=== PATIENT | male | born 1980 | race African-American/Black ===

== ENCOUNTER 2017-09-05 12:53 | Observation (INO) | payer SELFPAY ==
--- NOTE | 2017-09-05 14:54 | ER Document Report ---
ED General - General Chief Complaint: Abscess Stated Complaint: HEAD PAIN Time Seen by Provider: 09/05/17 14:43 TRAVEL OUTSIDE OF THE [place] IN LAST 30 DAYS: No - HPI Notes: Patient is a 37-year-old male who presents the ED complaining of his entire scalp being infected and draining over the course of 6 months. Patient denies any history of MRSA, and was in retirement during that time. He denies any drug allergies or significant past medical history. Patient has not been evaluated for these in the past. Patient states that the area is painful and drains randomly. He has not noticed any red streaks. Denies any headache, fever, head injury, neck pain, URI, sore throat, chest pain, palpitations, syncope, cough, shortness of breath, wheeze, dyspnea, abdominal pain, nausea/vomiting/ diarrhea, urinary retention, dysuria, hematuria. Last PO meal was around 1300. - Related Data Allergies/Adverse Reactions: No Known Allergies Allergy (Unverified 09/05/17 15:26) Past Medical History - Social History Smoking Status: Current Some Day Smoker Chew tobacco use (# tins/day): No Frequency of alcohol use: None Drug Abuse: None Family History: Reviewed & Not Pertinent Patient has suicidal ideation: No Patient has homicidal ideation: No Renal/ Medical History: Denies: Hx Peritoneal Dialysis Review of Systems - Review of Systems Notes: REVIEW OF SYSTEMS: CONSTITUTIONAL : Denies fever, chills, or sweats. Denies recent illness. EENT: Denies eye, ear, throat, or mouth pain or symptoms. Denies nasal or sinus congestion or discharge. Denies throat, tongue, or mouth swelling or difficulty swallowing. CARDIOVASCULAR: Denies chest pain. Denies palpitations or racing or irregular heart beat. Denies ankle edema. RESPIRATORY: Denies cough, cold, or chest congestion. Denies shortness of breath, difficulty breathing, or wheezing. GASTROINTESTINAL: Denies abdominal pain or distention. Denies nausea, vomiting , or diarrhea. Denies blood in vomitus, stools, or per rectum. Denies black, tarry stools. Denies constipation. GENITOURINARY: Denies difficulty urinating, painful urination, burning, frequency, blood in urine, or discharge. MUSCULOSKELETAL: Denies back or neck pain or stiffness. Denies joint pain or swelling. SKIN: see hpi HEMATOLOGIC : Denies easy bruising or bleeding. LYMPHATIC: Denies swollen, enlarged glands. NEUROLOGICAL: Denies confusion or altered mental status. Denies passing out or loss of consciousness. Denies dizziness or lightheadedness. Denies headache. Denies weakness or paralysis or loss of use of either side. Denies problems with gait or speech. Denies sensory loss, numbness, or tingling. ALL OTHER SYSTEMS REVIEWED AND NEGATIVE. Dictation was performed using [employer] voice recognition software Physical Exam - Vital signs Vitals: Temp Pulse Resp BP Pulse Ox 97.7 F 89 18 117/81 97 09/05/17 14:03 09/05/17 14:03 09/05/17 14:03 09/05/17 14:03 09/05/17 14:03 Notes: PHYSICAL EXAMINATION: GENERAL: Well-appearing, well-nourished and in no acute distress. HEAD: entire scalp is an abscess with noted tracts leading to other abscesses. Scant purulent discharge noted w/o applied pressure needed. No streaks noted. + tenderness. EYES: Pupils equal round and reactive to light, extraocular movements intact, sclera anicteric, conjunctiva are normal. ENT: EAC clear b/l. TM's intact b/l without erythema, fluid, or perforation. Nares patent and without discharge. oropharynx clear without exudates. No tonsilar hypertrophy or erythema. Moist mucous membranes. NECK: Normal range of motion, supple without lymphadenopathy. No rigidity. LUNGS: Breath sounds clear to auscultation bilaterally and equal. No wheezes rales or rhonchi. HEART: Regular rate and rhythm without murmurs, rubs, gallops. Extremities: No cyanosis, clubbing, or edema b/l. Peripheral pulses 2+. Capillary refill less than 3 seconds. NEUROLOGICAL: Cranial nerves grossly intact. Normal speech, normal gait. Normal sensory, motor exams PSYCH: Normal mood, normal affect. SKIN: see head exam. Course - Re-evaluation Re-evalutation: 09/05/17 14:[address] Everett due to the extent of the abscess and tract formation underneath the scalp leading to other abscesses. Dr. Everett will be in to evaluate the patient. CBC, CMP, BC's, wound culture, Lactic, and saline lock ordered. 09/05/17 17:[address] Everett again. He said he would be right over. 09/05/17 17:25 Dr. Everett manually drained some of the abscess, but recommends I&D here in the room. I will start I&D and Dr. Everett will recheck after he completes another task in the OR. 09/05/17 18:38 5 areas of I&D with packing was performed by myself. Pt could not tolerate anymore, but required at least another 4-5. Dr. Everett was called for recheck. He will take him to the OR tonight. Pt in agreement with plan Clindamycin IV started. - Vital Signs Vital signs: Temp Pulse Resp BP Pulse Ox 97.7 F 89 18 117/81 97 09/05/17 14:03 09/05/17 14:03 09/05/17 14:03 09/05/17 14:03 09/05/17 14:03 - Laboratory Result Diagrams: 09/05/17 15:13 09/05/17 15:13 Laboratory results interpreted by me: 09/05/17 09/05/17 15:13 15:13 WBC 11.3 H RDW 14.9 H AST 15 L Total Protein 8.4 H Procedures - Incision and Drainage Head Time completed: 18:30 Type: Simple Anesthetic type: 1% Lidocaine mL's of anesthetic: 10 Blade size: 11 I&D procedure: Shurclens applied, Iodoform packing placed Incision Method: Incision made by scalpel Amount/type of drainage: large purulent Notes: 09/05/17 18:40 I&D with packing x5 locations on the scalp Incision and drainage procedure, risks, benefits reviewed with the patient. Verbal and written consent obtained. Sterile technique utilized. The area was extensively cleansed utilizing chlorhexadine and saline. A 21-gauge needle was utilized to anesthetize the area using 3 mL's of 1% lidocaine without epinephrine. in each of the 5 areas Once adequate anesthesia was provided, a #11 scalpel was utilized to make a 2cm elliptical incision at the site of the abscess. Moderate amounts of purulent material was expressed. Wound culture obtained. Hemostats were then utilized to break up any remaining muscular pockets within the abscess. The wound was then packed using 1/4" iodoform. Wound dressing placed Minimal blood loss (approximately 3-5 cc's). Patient tolerated procedure well. No complications. Discharge - Discharge Clinical Impression: Abscess of scalp Condition: Stable Disposition: SAME DAY SURGERY Admitting Provider: Surgicalist - Dr. Everett Unit Admitted: Surgical Floor
[2017-09-05 15:35] LABS: ABSOLUTE BASOPHILS # (AUTO) 0.1 10^3/uL (0.0-0.2); ABSOLUTE EOSINOPHILS # (AUTO) 0.3 10^3/uL (0.0-0.6); ABSOLUTE LYMPHOCYTES (AUTO) 2.2 10^3/uL (0.5-4.7); ABSOLUTE MONOCYTES (AUTO) 0.8 10^3/uL (0.1-1.4); ABSOLUTE NEUT (AUTO) 7.8 10^3/uL (1.7-8.2); BASOPHILS % (AUTO) 0.9 % (0-2); EOSINOPHILS % (AUTO) 2.3 % (0-6); HEMATOCRIT 44.2 % (37.9-51.0); HEMOGLOBIN 14.8 g/dL (13.5-17.0); HGB HCT DIFFERENCE 0.2; LYMPHOCYTES % (AUTO) 19.8 % (13-45); MEAN CORPUSCULAR HEMOGLOBIN 27.7 pg (27.0-33.4); MEAN CORPUSCULAR HGB CONC 33.5 g/dL (32.0-36.0); MEAN CORPUSCULAR VOLUME 83 fl (80-97); MONOCYTES % (AUTO) 7.5 % (3-13); RED BLOOD COUNT 5.35 10^6/uL (4.35-5.55); RED CELL DISTRIBUTION WIDTH 14.9 % (11.5-14.0); SEGMENTED NEUTROPHILS % (AUTO) 69.5 % (42-78); WHITE BLOOD COUNT 11.3 10^3/uL (4.0-10.5)
[2017-09-05 15:55] LABS: ALANINE AMINOTRANSFERASE 28 U/L (21-72); ALBUMIN 4.5 g/dL (3.5-5.0); ALKALINE PHOSPHATASE 76 U/L (38-126); ANION GAP 14 (5-19); ASPARTATE AMINO TRANSFERASE 15 U/L (17-59); BILIRUBIN,DIRECT 0.4 mg/dL (0.0-0.4); BILIRUBIN,TOTAL 0.6 mg/dL (0.2-1.3); BLOOD UREA NITROGEN 10 mg/dL (7-20); CALCIUM 9.9 mg/dL (8.4-10.2); CARBON DIOXIDE 25 mmol/L (22-30); CHLORIDE 104 mmol/L (98-107); GLUCOSE 91 mg/dL (75-110); POTASSIUM 4.3 mmol/L (3.6-5.0); SODIUM 143.4 mmol/L (137-145); TOTAL PROTEIN 8.4 g/dL (6.3-8.2)
[2017-09-05] MEDS ORDERED: LIDOCAINE 1% INJ-PF (10 MG/ML) 30 ML SDV INJ ONE (17:24)
[2017-09-05] MEDS ORDERED: CLINDAMYCIN 600 MG/D5W RTU 600 MG/50 ML RTUPB IV ONE (18:38)
--- NOTE | 2017-09-05 19:08 | HISTORY AND PHYSICAL E ---
History and Physical NAME: SHA SILVERMAN : 1980 AGE: 37Y ADMITTED: 09/05/2017 ROOM: CHIEF COMPLAINT: Pains in the scalp and below the chin. HISTORY OF PRESENT ILLNESS: This is a 37-year-old male who has been having pains in the scalp off and on, and sometimes it will also drain spontaneously, for the past several months. The patient was noted to be in [facility] for the past 6 months and just came out. It was kind of neglected while in the [facility]. PAST SURGICAL HISTORY: No previous surgery in the past. PAST MEDICAL HISTORY: No other medical conditions. FAMILY HISTORY: Mother has lung cancer and father is alive and well. SOCIAL HISTORY: Smokes about 1/2 pack a day and drinks socially. No recreational drug use. ALLERGIES: None known. REVIEW OF SYSTEMS: As in HPI. Denies any diarrhea or constipation. No dysuria. No chest pains. No shortness of breath. No dysuria or visual or hearing problems. The rest of the systems are negative. PHYSICAL EXAMINATION: GENERAL: This is a 37-year-old -[place] male, alert and oriented, complaining of scalp pains. HEENT: The head has multiple areas of abscesses with elevations from scar. About 5 of those abscesses were drained in the ER, but the patient was unable to tolerate further. He had subcutaneous swelling along the right side of the scalp and on the occipital area which may be abscesses. He also has a fluctuant area below the chin roughly measuring about 5 x 2 cm that is tender. LUNGS: Clear. HEART: Regular sinus rhythm. ABDOMEN: Soft, nontender. EXTREMITIES: No edema. IMPRESSION: Multiple abscesses of the scalp and below the chin. PLANS: 1. The patient is to have IV antibiotics. 2. These abscesses of the scalp will be further drained in the ER under sedation and local anesthesia. DICTATING PHYSICIAN: KADEEM MEJIAS M.D. [id number] PHY#: [id number] ID: [id number] JOB#: [id number] ACCT: [id number] cc:KADEEM MEJIAS M.D. NO Jair FERREIRA
[2017-09-06] MEDS ORDERED: MORPHINE SULFATE 10 MG/ML INJ IV PRN ×3 (01:56→17:33)
[2017-09-06] MEDS ORDERED: CLINDAMYCIN 600 MG/D5W RTU 600 MG/50 ML RTUPB IV ONE (02:00)
[2017-09-06] MEDS ORDERED: INFLUENZA ADLT QUAD (36MOS+) 2017-18 VAC 0.5 ML SYR IM PRN (02:22)
[2017-09-06] MEDS: NORMAL SALINE 1000 ML 1,000 ML IV PRN (02:53)
[2017-09-06 06:38] LABS: ABSOLUTE BASOPHILS # (AUTO) 0.1 10^3/uL (0.0-0.2); ABSOLUTE EOSINOPHILS # (AUTO) 0.3 10^3/uL (0.0-0.6); ABSOLUTE LYMPHOCYTES (AUTO) 2.3 10^3/uL (0.5-4.7); ABSOLUTE MONOCYTES (AUTO) 1.1 10^3/uL (0.1-1.4); ABSOLUTE NEUT (AUTO) 6.6 10^3/uL (1.7-8.2); EOSINOPHILS % (AUTO) 2.9 % (0-6); HEMATOCRIT 39.1 % (37.9-51.0); HEMOGLOBIN 13.1 g/dL (13.5-17.0); HGB HCT DIFFERENCE 0.2; LYMPHOCYTES % (AUTO) 21.7 % (13-45); MEAN CORPUSCULAR HEMOGLOBIN 27.6 pg (27.0-33.4); MEAN CORPUSCULAR HGB CONC 33.6 g/dL (32.0-36.0); MEAN CORPUSCULAR VOLUME 82 fl (80-97); MONOCYTES % (AUTO) 10.5 % (3-13); RED BLOOD COUNT 4.76 10^6/uL (4.35-5.55); RED CELL DISTRIBUTION WIDTH 14.9 % (11.5-14.0); SEGMENTED NEUTROPHILS % (AUTO) 63.9 % (42-78); WHITE BLOOD COUNT 10.4 10^3/uL (4.0-10.5)
--- NOTE | 2017-09-06 11:53 | PDOC PROGRESS REPORT ---
Subjective Progress Note for:: 09/06/17 Subjective:: Painful lesions on the scalp. Also underneath the chin. Physical Exam Vital Signs: Temp Pulse Resp BP Pulse Ox 97.7 F 69 17 117/73 98 09/06/17 08:01 09/06/17 08:01 09/06/17 08:01 09/06/17 08:01 09/06/17 08:01 Intake & Output 09/05/17 09/06/17 09/07/17 06:59 06:59 06:59 Intake Total 240 Output Total 200 Balance 40 Weight 90.7 kg General appearance: PRESENT: no acute distress, cooperative Respiratory exam: PRESENT: clear to auscultation jose Cardiovascular exam: PRESENT: RRR Skin exam: PRESENT: other - Multiple serpiginous swelling all over his scalp with fluctuance and purulent drainage. Involves majority of his scalp. Patient with a similar appearing lesion underneath his chin with fluctuance and tenderness. Results Laboratory Results: 09/06/17 06:07 09/06/17 06:07 WBC 10.4 RBC 4.76 Hgb 13.1 L Hct 39.1 MCV 82 MCH 27.6 MCHC 33.6 RDW 14.9 H Plt Count 203 Seg Neutrophils % 63.9 Lymphocytes % 21.7 Monocytes % 10.5 Eosinophils % 2.9 Basophils % 1.0 Absolute Neutrophils 6.6 Absolute Lymphocytes 2.3 Absolute Monocytes 1.1 Absolute Eosinophils 0.3 Absolute Basophils 0.1 Assessment & Plan - Diagnosis (1) Abscess of scalp Is this a current diagnosis for this admission?: Yes Plan: We will plan incision and drainage of his extensive serpiginous abscesses on his scalp. Will also plan incision and drainage of the abscess underneath his chin as well. I have discussed with the patient the risk and benefits of the procedure including risk of bleeding, infection, scarring, prolonged wound healing and most certainly recurrence. The drainage procedure will help control the infection but the underlying skin disease needs to be treated by dermatology. Unfortunately we do not have the inpatient dermatology in the hospital. I will make a referral as an outpatient.
[2017-09-06] MEDS: CLINDAMYCIN 600 MG/D5W RTU 600 MG/50 ML RTUPB IV SCH ×3 (12:13→20:55)
[2017-09-06] MEDS ORDERED: LIDOCAINE 1%/EPINEPHRINE INJ 20 ML VIAL ONE (13:13)
[2017-09-06] MEDS ORDERED: BUPIVACAINE HCL 0.25 % INJ/PF (2.5 MG/1 ML) 30 ML VIAL ONE (13:44)
[2017-09-06] MEDS ORDERED: HYDROMORPHONE HCL INJ/PF 2 MG/ML AMPULE ONE (15:42)
[2017-09-06] MEDS ORDERED: ONDANSETRON HCL INJ/PF 4 MG/2 ML SDV ONE (15:43)
[2017-09-06] MEDS ORDERED: PROPOFOL INJ 200 MG/20 ML VIAL IV ONE (15:43)
[2017-09-06] MEDS ORDERED: MIDAZOLAM 2 MG/2 ML INJ ONE (15:43)
[2017-09-06] MEDS ORDERED: FENTANYL CITRATE INJ/PF 100 MCG/2 ML AMPUL ONE (15:43)
[2017-09-06] MEDS ORDERED: DIPHENHYDRAMINE HCL 50 MG/ML VIAL IV PRN (16:33)
[2017-09-06] MEDS ORDERED: MEPERIDINE HCL/PF INJ 25 MG/1 ML DISP.SYRIN IV PRN (16:33)
[2017-09-06] MEDS ORDERED: PROMETHAZINE HCL INJ 25 MG/1 ML VIAL IV PRN (16:33)
[2017-09-06] MEDS ORDERED: FENTANYL CITRATE INJ/PF 100 MCG/2 ML AMPUL IV PRN ×3 (16:33)
--- NOTE | 2017-09-06 17:31 | Operative Report ---
Operative Report DATE OF SURGERY: 09/06/17 PREOPERATIVE DIAGNOSIS: Multiple scalp abscesses. POSTOPERATIVE DIAGNOSIS: Multiple scalp abscesses. Submental abscess. OPERATION: Excisional debridement of multiple scalp abscesses (about 30) and submental abscess. SURGEON: JAY BARR ANESTHESIA: GA TISSUE REMOVED OR ALTERED: Pus sent for Gram stain and culture. Assess cavity wall from couple of the scalp abscesses sent for histology. COMPLICATIONS: None ESTIMATED BLOOD LOSS: 200 cc INTRAOPERATIVE FINDINGS: Approximately 30 serpiginous abscesses throughout the patient's scalp. Approximately 2 x 1 cm abscess at the submental region. Almost all of these lesions had pus and cottage cheeselike material. A few of them just cottage cheeselike material. PROCEDURE: Informed consent was obtained. Patient was brought to the operating room placed on the operating table in the supine position. After satisfactory induction of general anesthesia, patient scalp and his neck underneath his chin was prepped and draped in the usual sterile fashion. Underneath his chin at the submental region patient had a 2 x 1 cm abscess that was opened and the cavity was curetted yielding cottage cheeselike material along with pus. The pus was sent for Gram stain and culture. On his scalp, throughout almost the entire scalp, patient had multiple serpiginous abscess pockets, approximately 30 -40 of them. Each of these lesions was opened using electrocautery to minimize bleeding. I encountered cottage cheeselike material and pus in most of these lesions. A few of them had only cottage cheese like material. Every one of these lesions were opened and curetted. The lining of the particularly larger ones along with portion of the overlying skin was submitted to histology. Pus that was encountered was swabbed for Gram stain and culture. The scalp was then cleansed. Hemostasis appeared to be reasonable with only minimal oozing. At the end of the case. Dry gauze dressing was then applied to apply compression to the scalp. Patient tolerated procedure well with no apparent complications and was taken to the recovery area in stable condition.
[2017-09-07] MEDS: NORMAL SALINE 1000 ML 1,000 ML IV PRN (01:01)
[2017-09-07] MEDS: CLINDAMYCIN 600 MG/D5W RTU 600 MG/50 ML RTUPB IV SCH ×4 (03:54→20:39)
[2017-09-07 07:02] LABS: URINE BARBITURATES SCREEN NEGATIVE; URINE METHADONE SCREEN NEGATIVE; URINE PHENCYCLIDINE SCREEN NEGATIVE
[2017-09-07 07:29] LABS: URINE OPIATES LOW UNCONFIRMED POSITIVE
[2017-09-07] MEDS ORDERED: INFLUENZA ADLT QUAD (36MOS+) 2017-18 VAC 0.5 ML SYR IM PRN (13:00)
--- NOTE | 2017-09-07 17:36 | PDOC PROGRESS REPORT ---
Subjective Progress Note for:: 09/07/17 Subjective:: Pains along the skull and submental area where he had multiple incision and drainage done yesterday Physical Exam Vital Signs: Temp Pulse Resp BP Pulse Ox 98.3 F 80 18 107/57 L 100 09/07/17 15:52 09/07/17 15:52 09/07/17 15:52 09/07/17 15:52 09/07/17 15:52 Intake & Output 09/06/17 09/07/17 09/08/17 06:59 06:59 06:59 Intake Total 240 4634 1050 Output Total 200 100 Balance 40 4534 1050 Weight 90.7 kg Exam: Head bandages intact. We will leave this on until at least tomorrow then possibly start him on shampoo. We will try to refer him to outpatient field ring assembler Results Laboratory Results: 09/06/17 06:07 Assessment & Plan - Time Time Spent with patient: 15-24 minutes - Plan Summary Plan Summary: #1 continue with IV antibiotic therapy To open the dressings tomorrow and possibly start him on shampoo of the hair Await final cultures results to the and to discharge the patient on based on the cultures. We will try to refer him to a field ring assembler on an outpatient basis to find out the etiology of all these abscesses of the scalp and submental area
[2017-09-08] MEDS: CLINDAMYCIN 600 MG/D5W RTU 600 MG/50 ML RTUPB IV SCH ×3 (04:01→15:57)
[2017-09-08 16:18] VITALS: BP 112/66
--- NOTE | 2017-09-08 16:20 | PDOC DISCHARGE SUMMARY ---
Discharge Summary (SDC) - Discharge Final Diagnosis: Multiple scalp abscesses and submental abscess Date of Surgery: 09/06/17 Discharge Date: 09/08/17 Condition: Stable Treatment or Instructions: Continue daily shampooing of the hair. Follow-up the surgical clinic in [address] Villasenor Outpatient follow-up with a hvac sales representative Culture showed Proteus mirabilis sensitive to Cipro. Patient to take Cipro 500 mg p.o. twice a day for 2 weeks Prescriptions: Ciprofloxacin HCl [Cipro 500 mg Tablet] 500 mg PO BID 14 Days #30 tablet Referrals: [facility] [Provider Group] - 09/25/17 2:15 pm (S/P DEBRIDEMENT OF MULTIPLE SCALP ABSCESS 09/06) [facility] [Outside] - 10/03/17 8:45 am (Paperwork will be mailed out to you. Please complete before visit. Arrive 20 mins early. Office visit will be between $80- $180 due in full at time of visit.)
== END 2017-09-08 17:54 | disposition home or self-care (01) ==
LOC: ER 12:53 → UNDOADMOB 19:54 → EH 19:54 → 4N 09-06 01:25 → EH 09-06 01:25 → 4N 09-06 01:40 → EH 09-06 01:40
PROVIDERS: ATTEND Surgery
PROC: 0H90XZZ Drainage of Scalp Skin, External Approach (ICD-10-PCS; 2017-09-06)
PROC: 0JB10ZZ Excision of Face Subcutaneous Tissue and Fascia, Open Approach (ICD-10-PCS; 2017-09-06)
PROC: 0JB00ZZ Excision of Scalp Subcutaneous Tissue and Fascia, Open Approach (ICD-10-PCS; 2017-09-06)
PROC: 3E0234Z Introduction of Serum, Toxoid and Vaccine into Muscle, Percutaneous Approach (ICD-10-PCS; principal; 2017-09-08)
DX: L02.811 Cutaneous abscess of head [any part, except face] (principal); L02.01 Cutaneous abscess of face; B96.4 Proteus (mirabilis) (morganii) as the cause of diseases classified elsewhere; L98.499 Non-pressure chronic ulcer of skin of other sites with unspecified severity; F17.210 Nicotine dependence, cigarettes, uncomplicated; Z23 Encounter for immunization
CPT/HCPCS: 99285; 96365; 36415 ×2; 87040; 87070 ×2; 87205 ×2; 85025 ×2; 87075; 87077; 80053; 87186; 80307; 83605; 88305 ×2; 88312 ×2; 90686; 10061; 11042; A6266; J2250; J3010; J3490 ×3; J1170; J2405; J7030 ×2; J2704; 300

== ENCOUNTER 2018-05-24 10:19 | Emergency (ER) | payer SELFPAY ==
[2018-05-24 10:26] VITALS: BP 110/70
--- NOTE | 2018-05-24 10:37 | ER Document Report ---
HPI - HPI Patient complains to provider of: Right scalp abscess Onset: Other - 3 days Pain Level: 0 Context: 38-year-old male that was incarcerated for 8 years and had multiple facial and scalp abscesses with keloid scarring is now here with an abscess formation to the right parietal scalp for 3 days. No known allergies. No history of MRSA. Exacerbated by: Denies Relieved by: Denies Similar symptoms previously: Yes Recently seen / treated by doctor: No - ROS ROS below otherwise negative: Yes Systems Reviewed and Negative: Yes All other systems reviewed and negative Past Medical History - General Information source: Patient - Social History Smoking Status: Current Every Day Smoker Frequency of alcohol use: None Drug Abuse: None Occupation: Unemployed Lives with: Family Family History: Reviewed & Not Pertinent - Medical History Medical History: Negative Renal/ Medical History: Denies: Hx Peritoneal Dialysis Surgical Hx: Negative Vertical Provider Document - CONSTITUTIONAL Agree With Documented VS: Yes - INFECTION CONTROL TRAVEL OUTSIDE OF THE [place] IN LAST 30 DAYS: No - HEENT HEENT: Normocephalic Notes: 3 cm abscess to the right parietal scalp, flucuant, red, extensive keloids top of head and bilateral cheeks - NECK Neck: Supple - NEURO Level of Consciousness: Awake - DERM Integumentary: Abscess - See above Course - Vital Signs Vital signs: Temp Pulse Resp BP Pulse Ox 97.9 F 78 20 110/70 98 05/24/18 10:25 05/24/18 10:25 05/24/18 10:25 05/24/18 10:25 05/24/18 10:25 Procedures - Incision and Drainage Right Head Time completed: 11:52 Type: Simple Anesthetic type: 1% Lidocaine mL's of anesthetic: 4 Blade size: 11 I&D procedure: Betadine prep applied, Sterile dressing applied - corner of 4 x 4 packing, coban Incision Method: Incision made by scalpel Amount/type of drainage: large pus Discharge - Discharge Clinical Impression: Incision and drainage scalp abscess Condition: Good Disposition: HOME, SELF-CARE Instructions: Abscess ([facility]), Cephalexin ([facility]), Post Incision and Drainage, Trimethoprim-Sulfa ([facility]) Additional Instructions: Warm compress Leave the bandage on reCheck on Monday in the ER Return to the emergency room sooner if the symptoms worsen Prescriptions: Cephalexin Monohydrate [Keflex 500 mg Capsule] 500 mg PO QID #28 capsule Sulfamethoxazole/Trimethoprim [Sulfamethoxazole-Tmp Ds Tablet] 1 each PO BID # 14 tablet
[2018-05-24] MEDS ORDERED: SULFAMETHOXAZOLE/TRIMETHOPRIM 800-160 MG TABLET PO ONE (10:43)
[2018-05-24] MEDS ORDERED: ACETAMINOPHEN 325 MG TABLET PO ONE (10:44)
[2018-05-24] MEDS ORDERED: IBUPROFEN 800 MG TABLET PO ONE (10:44)
[2018-05-24] MEDS ORDERED: ONDANSETRON 4 MG TAB.RAPDIS PO ONE (10:44)
[2018-05-24] MEDS ORDERED: CEPHALEXIN 500 MG CAPSULE PO ONE (11:49)
== END 2018-05-24 12:00 | disposition home or self-care (01) ==
LOC: ER 10:19
DX: L02.811 Cutaneous abscess of head [any part, except face] (principal); F17.200 Nicotine dependence, unspecified, uncomplicated; L91.0 Hypertrophic scar
CPT/HCPCS: 99283; 10060; S0119

== ENCOUNTER 2018-05-26 13:06 | Emergency (ER) | payer SELFPAY ==
--- NOTE | 2018-05-26 13:38 | ER Document Report ---
HPI - HPI Patient complains to provider of: abscess recheck Onset: Other - 2 days ago Pain Level: Denies Context: 38 yo male with chronic scalp abascess and keloids had right temporal abscess i and d 2 days ago. No fever. Associated Symptoms: None Exacerbated by: Denies Relieved by: Denies - ROS ROS below otherwise negative: Yes Systems Reviewed and Negative: Yes All other systems reviewed and negative Past Medical History - General Information source: Patient - Social History Smoking Status: Current Every Day Smoker Frequency of alcohol use: None Drug Abuse: None Lives with: Family Family History: Reviewed & Not Pertinent Patient has suicidal ideation: No Patient has homicidal ideation: No - Medical History Medical History: Negative Renal/ Medical History: Denies: Hx Peritoneal Dialysis Surgical Hx: Negative Vertical Provider Document - CONSTITUTIONAL Agree With Documented VS: Yes Exam Limitations: No Limitations General Appearance: No Apparent Distress - INFECTION CONTROL TRAVEL OUTSIDE OF THE [place] IN LAST 30 DAYS: No - DERM Integumentary: Abscess - flat, no pus, although other chronic follicular drainage mixed with keloid scars Course - Vital Signs Vital signs: Temp Pulse Resp BP Pulse Ox 98.5 F 72 16 120/77 98 05/26/18 13:14 05/26/18 13:14 05/26/18 13:14 05/26/18 13:14 05/26/18 13:14 Discharge - Discharge Clinical Impression: Scalp abscess recheck, Chronic scalp pustules Condition: Good Disposition: HOME, SELF-CARE Instructions: Abscess ([facility]), Cephalexin ([facility]), Trimethoprim-Sulfa ([facility]) Additional Instructions: Warm compress Take the antibiotics Motrin Tylenol Lidocaine to numb the area See the dentist Return to the emergency room if worse Prescriptions: Cephalexin Monohydrate [Keflex 500 mg Capsule] 500 mg PO QID #28 capsule Sulfamethoxazole/Trimethoprim [Sulfamethoxazole-Tmp Ds Tablet] 1 each PO BID # 14 tablet Referrals: KRYSTEN HARRIS MD [ACTIVE STAFF] - Follow up as needed
[2018-05-26] MEDS ORDERED: LIDOCAINE 2% VISCOUS SOLN 20 ML UDCUP PO ONE (13:44)
[2018-05-26] MEDS ORDERED: IBUPROFEN 800 MG TABLET PO ONE (13:44)
[2018-05-26] MEDS ORDERED: ONDANSETRON 4 MG TAB.RAPDIS PO ONE (13:44)
[2018-05-26] MEDS ORDERED: PENICILLIN V POTASSIUM 500 MG TABLET PO ONE (13:44)
[2018-05-26] MEDS ORDERED: ACETAMINOPHEN 325 MG TABLET PO ONE (13:44)
[2018-05-26 14:15] VITALS: BP 65/46
== END 2018-05-26 14:15 | disposition home or self-care (01) ==
LOC: ER 13:06
DX: L02.811 Cutaneous abscess of head [any part, except face] (principal); L91.0 Hypertrophic scar; F17.200 Nicotine dependence, unspecified, uncomplicated
CPT/HCPCS: 99282

== ENCOUNTER 2018-10-20 06:44 | Emergency (ER) | payer SELFPAY ==
[2018-10-20] MEDS ORDERED: LIDOCAINE 1% INJ-PF (10 MG/ML) 30 ML SDV INJ ONE (08:07)
--- NOTE | 2018-10-20 08:14 | ER Document Report ---
HPI - HPI Time Seen by Provider: 10/20/18 07:43 Pain Level: 4 Notes: Patient is a 38-year-old male with a history of keloids and multiple abscesses to his scalp last year who presents to the ED complaining of another abscess formation to the left scalp from 1 of the scars. Patient states that the swelling started a few days ago. He has no history of MRSA. He is otherwise eating and drinking without any difficulties. He is urinating normally. Denies any drug allergies. No other concerns or complaints. Denies IV drug use. Denies any headache, fever, head injury, neck pain, URI, sore throat, chest pain, palpitations, syncope, cough, shortness of breath, wheeze, dyspnea, abdominal pain, nausea/vomiting/diarrhea, urinary retention, dysuria, hematuria. - ROS Systems Reviewed and Negative: Yes All other systems reviewed and negative - CONSTITUTIONAL Constitutional: DENIES: Fever, Chills Past Medical History - Social History Smoking Status: Never Smoker Frequency of alcohol use: None Drug Abuse: None Family History: Reviewed & Not Pertinent Patient has suicidal ideation: No Patient has homicidal ideation: No Renal/ Medical History: Denies: Hx Peritoneal Dialysis Vertical Provider Document - CONSTITUTIONAL Agree With Documented VS: Yes Notes: PHYSICAL EXAMINATION: GENERAL: Well-appearing, well-nourished and in no acute distress. HEAD: keloids entire scalp. + abscess and fluctuance noted to the left lateral scalp involving one of the keloids. No streaks. EYES: Pupils equal round and reactive to light, extraocular movements intact, sclera anicteric, conjunctiva are normal. ENT: Nares patent and without discharge. oropharynx clear without exudates. No tonsilar hypertrophy or erythema. Moist mucous membranes. NECK: Normal range of motion, supple without lymphadenopathy LUNGS: Breath sounds clear to auscultation bilaterally and equal. No wheezes rales or rhonchi. HEART: Regular rate and rhythm without murmurs, rubs, gallops. ABDOMEN: Soft, nontender, nondistended abdomen. No guarding, no rebound. No masses appreciated. Normal bowel sounds present. No CVA tenderness bilaterally. Musculoskeletal: FROM to passive/active. Strength 5+/5. Extremities: No cyanosis, clubbing, or edema b/l. Peripheral pulses 2+. Capillary refill less than 3 seconds. NEUROLOGICAL: Cranial nerves grossly intact. Normal speech, normal gait. Normal sensory, motor exams PSYCH: Normal mood, normal affect. SKIN: see above. US utilized to see fluid/fluctuance. - INFECTION CONTROL TRAVEL OUTSIDE OF THE [place] IN LAST 30 DAYS: No Course - Re-evaluation Re-evalutation: 10/20/18 09:54 Patient is an afebrile, well-hydrated, 38-year-old male who presents to the ED with an abscess to his left scalp. Vitals are acceptable without significant tachycardia, tachypnea, or hypoxia. PE is otherwise unremarkable. Incision and drainage was performed successfully without any complications and wound culture was obtained. Wound dressing was placed and wound instructions reviewed. Patient is nontoxic-appearing and is tolerating p.o. without difficulty. No further labs or imaging warranted at this time. I will send him home with a prescription for Keflex and Bactrim. Conservative measures otherwise. Recheck with your PCM/general surgery for recheck next week. Return to the ED with any worsening/concerning symptoms otherwise as reviewed. Patient is in agreement. - Vital Signs Vital signs: Temp Pulse Resp BP Pulse Ox 97.8 F 88 18 133/82 H 95 10/20/18 06:50 10/20/18 06:50 10/20/18 06:50 10/20/18 06:50 10/20/18 06:50 Procedures - Incision and Drainage Left Head Time completed: 09:45 - Patient tolerated procedure well without any complications Type: Simple Anesthetic type: 1% Lidocaine mL's of anesthetic: 6 Blade size: 11 I&D procedure: Iodoform packing placed, Sterile dressing applied, Other - chlorhexadine/saline Incision Method: Incision made by scalpel Amount/type of drainage: abundant purulent, bloody Discharge - Discharge Clinical Impression: Abscess of scalp Condition: Stable Disposition: HOME, SELF-CARE Instructions: Cephalexin ([facility]), Trimethoprim-Sulfa ([facility]), Post Incision and Drainage Additional Instructions: Do not shower or bathe for 24 hours. After 24 hours she may shower but no submersion of the wound under water. Keep the original dressing on the wound for 24 hours unless the drainage soaks through. Change the dressing daily thereafter and use a small amount of triple antibiotic ointment over the open wound. See your PCM in 2-3 days for recheck and continue direction for wound packing. Schedule a f/u with the general surgeon as well. Monitor for any signs of worsening pain or redness, streaks, and/or fever. Return to the ED if noticing any of the above symptoms or as needed. Take medications as directed. Prescriptions: Cephalexin Monohydrate [Keflex 500 mg Capsule] 500 mg PO TID #30 capsule Sulfamethoxazole/Trimethoprim [Bactrim Ds Tablet] 1 each PO BID #20 tablet Forms: Elevated Blood Pressure Referrals: [facility] [Primary Care Provider] - 10/23/18 MARIBEL SIN MD [ACTIVE STAFF] - Follow up as needed
[2018-10-20 10:08] VITALS: BP 128/81
== END 2018-10-20 10:08 | disposition home or self-care (01) ==
LOC: ER 06:44
DX: L02.811 Cutaneous abscess of head [any part, except face] (principal); L91.0 Hypertrophic scar
CPT/HCPCS: 99283; 87070; 87205; 87075; 87077; 10060; A6266; 87186

== ENCOUNTER 2018-11-23 01:52 | Emergency (ER) | payer SELFPAY ==
[2018-11-23 02:19] VITALS: BP 118/81
[2018-11-23] MEDS ORDERED: LIDOCAINE 1% INJ-PF (10 MG/ML) 30 ML SDV INJ ONE (02:27)
--- NOTE | 2018-11-23 02:28 | ER Document Report ---
ED Skin Rash/Insect Bite/Abscs - General Chief Complaint: Abscess Stated Complaint: ABCESS Time Seen by Provider: 11/23/18 02:22 Notes: Patient is a 38-year-old male that comes to the emergency department for chief complaint of an area above his left buttock where he has pain and swelling. He states this has developed over a week ago. He denies history of the same. He denies fever or chills, nausea vomiting, or any other complaints. He denies history of diabetes. TRAVEL OUTSIDE OF THE [place] IN LAST 30 DAYS: No - Related Data Allergies/Adverse Reactions: No Known Allergies Allergy (Verified 05/26/18 13:08) Past Medical History - General Information source: Patient - Social History Smoking Status: Never Smoker Drug Abuse: None Lives with: Family Family History: Reviewed & Not Pertinent - Medical History Medical History: Negative Renal/ Medical History: Denies: Hx Peritoneal Dialysis Surgical Hx: Negative - Immunizations Immunizations up to date: Yes Hx Diphtheria, Pertussis, Tetanus Vaccination: Yes Review of Systems - Review of Systems Constitutional: No symptoms reported EENT: No symptoms reported Cardiovascular: No symptoms reported Respiratory: No symptoms reported Gastrointestinal: No symptoms reported Genitourinary: No symptoms reported Male Genitourinary: No symptoms reported Musculoskeletal: No symptoms reported Skin: See HPI Hematologic/Lymphatic: No symptoms reported Neurological/Psychological: No symptoms reported Physical Exam - Vital signs Vitals: Temp Pulse Resp BP Pulse Ox 97.9 F 108 H 18 118/81 95 11/23/18 01:55 11/23/18 01:55 11/23/18 01:55 11/23/18 01:55 11/23/18 01:55 - Notes Notes: GENERAL: Alert, interacts well. No acute distress. HEAD: Normocephalic, atraumatic. EYES: Pupils equal, round, and reactive to light. Extraocular movements intact. ENT: Oral mucosa moist, tongue midline. Oropharynx unremarkable. Airway patent. Nares patent, no nasal septal hematoma, TM's intact. NECK: Full range of motion. Supple. Trachea midline. LUNGS: Clear to auscultation bilaterally, no wheezes, rales, or rhonchi. No respiratory distress. HEART: Regular rate and rhythm. No murmur ABDOMEN: Soft, non-tender. Non-distended. Bowel sounds present in all 4 quadrants. GENITOURINARY: Deferred EXTREMITIES: Moves all 4 extremities spontaneously. No edema, normal radial and dorsalis pedis pulses bilaterally. No cyanosis. BACK: no cervical, thoracic, lumbar midline tenderness. No saddle anesthesia, normal distal neurovascular exam. NEUROLOGICAL: Alert and oriented x3. Normal speech. [cranial nerves II through XII grossly intact]. PSYCH: Normal affect, normal mood. SKIN: Left superior buttock with an indurated area. There is minimal erythema and warmth, there is no noted spreading cellulitis, there is no fluctuance or head. Unremarkable skin exam otherwise. Course - Re-evaluation Re-evalutation: Patient has a small indurated area over the left pilonidal cyst area. There is no fluctuant component. There is minimal erythema. Discussed with patient, decision was made to attempt to drain, I was able to obtain a very small amount of purulent material using an 18-gauge needle but this was somewhat deep and there is no large fluctuant area. After the drainage was performed, absorbent dressing was placed, placed on antibiotics, discussed recommendations, discussed surgical clinic follow-up, discussed return precautions in detail with patient. Patient states understanding and agreement. - Vital Signs Vital signs: Temp Pulse Resp BP Pulse Ox 97.9 F 108 H 18 118/81 95 11/23/18 01:55 11/23/18 01:55 11/23/18 01:55 11/23/18 01:55 11/23/18 01:55 Procedures - Incision and Drainage Left upper gluteal cleft Type: Single Anesthetic type: 1% Lidocaine mL's of anesthetic: 7 I&D procedure: Shurclens applied, Sterile dressing applied Incision Method: Incision made with needle Discharge - Discharge Clinical Impression: Pilonidal cyst Condition: Stable Disposition: HOME, SELF-CARE Additional Instructions: Your symptoms are suggestive of a developing pilonidal cyst infection, a small amount of pus was drained from the area but no significant amount at this time. Recommendation is to apply warm compress to the area several times a day, keep absorbent dressing over the area, take the antibiotics as prescribed. This can draw it to a head and cause drainage. Symptoms should improve with time. Follow-up with primary care, consider follow-up with the general surgery clinic especially if this continues to occur. Return if you worsen including developing or spreading redness, fever, or any other concerning or worsening symptoms. Prescriptions: Cephalexin Monohydrate [Keflex 500 mg Capsule] 500 mg PO QID #28 capsule Sulfamethoxazole/Trimethoprim [Bactrim Ds Tablet] 1 each PO BID #14 tablet Referrals: [facility] [Provider Group] - Follow up in 3-5 days
[2018-11-23] MEDS ORDERED: HYDROCODONE/ACETAMINOPHEN 5-325 MG (6 TAB/ER DISP) PO PRN (03:12)
[2018-11-23] MEDS ORDERED: CEPHALEXIN 500 MG CAPSULE PO ONE (03:19)
[2018-11-23] MEDS ORDERED: SULFAMETHOXAZOLE/TRIMETHOPRIM 800-160 MG TABLET PO ONE (03:19)
== END 2018-11-23 03:37 | disposition home or self-care (01) ==
LOC: ER 01:52
DX: L05.91 Pilonidal cyst without abscess (principal)
CPT/HCPCS: 99283; 10080; J3490

== ENCOUNTER 2018-12-21 13:29 | Emergency (ER) | payer SELFPAY ==
[2018-12-21] MEDS ORDERED: LIDOCAINE 1% INJ-PF (10 MG/ML) 30 ML SDV INJ ONE ×2 (14:15→17:21)
--- NOTE | 2018-12-21 17:11 | ER Document Report ---
ED General - General Chief Complaint: Abscess Stated Complaint: WOUND CHECK Time Seen by Provider: 12/21/18 14:09 Primary Care Provider: TATE GUTIERREZ [NO LOCAL MD] - Follow up as needed KADEEM MEJIAS MD [WENCESLAO FRANCOIS] - Follow up as needed TRAVEL OUTSIDE OF THE [place] IN LAST 30 DAYS: No - HPI Notes: Patient is a 38-year-old male no significant past medical history presents to the emergency department complaining of an abscess to his left upper buttock that is been there for the last few weeks. Patient states that he was here about a month ago and was placed on antibiotics, but did not have an incision and drainage performed at that time as there is no fluctuance. Patient states that he has noticed increased pain and redness to the area without any purulent discharge or red streaking. He is eating and drinking without difficulty. He is urinating normally and having normal bowel movements. Denies drug allergies. Denies IV drug abuse. No other concerns or complaints. Denies any headache, fever, URI, sore throat, chest pain, palpitations, syncope, cough, shortness of breath, wheeze, dyspnea, abdominal pain, nausea/vomiting/diarrhea, urinary re tention, dysuria, hematuria. - Related Data Allergies/Adverse Reactions: No Known Allergies Allergy (Verified 12/21/18 13:31) Past Medical History - Social History Smoking Status: Unknown if Ever Smoked Family History: Reviewed & Not Pertinent Patient has suicidal ideation: No Patient has homicidal ideation: No Renal/ Medical History: Denies: Hx Peritoneal Dialysis - Immunizations Immunizations up to date: Yes Hx Diphtheria, Pertussis, Tetanus Vaccination: Yes Review of Systems - Review of Systems -: Yes All other systems reviewed and negative Physical Exam - Vital signs Vitals: Temp Pulse Resp BP Pulse Ox 97.6 F 69 16 119/71 98 12/21/18 13:36 12/21/18 13:36 12/21/18 13:36 12/21/18 13:36 12/21/18 13:36 - Notes Notes: PHYSICAL EXAMINATION: GENERAL: Well-appearing, well-nourished and in no acute distress. LUNGS: Breath sounds clear to auscultation bilaterally and equal. No wheezes rales or rhonchi. HEART: Regular rate and rhythm without murmurs, rubs, gallops. ABDOMEN: Soft, nontender, nondistended abdomen. No guarding, no rebound. No masses appreciated. Normal bowel sounds present. No CVA tenderness bilaterally. Musculoskeletal: FROM to passive/active. Strength 5+/5. Extremities: No cyanosis, clubbing, or edema b/l. Peripheral pulses 2+. Capillary refill less than 3 seconds. NEUROLOGICAL: Normal speech, normal gait. PSYCH: Normal mood, normal affect. SKIN: there is an indurated, erythemic, fluctuant abscess to the left upper buttock. + tenderness. Approx size is 6cm diameter. Course - Re-evaluation Re-evalutation: 12/21/18 17:50 Patient is an afebrile, well-hydrated, 38-year-old male who presents emergency department with an abscess to his left upper buttock. Vitals are acceptable without significant tachycardia, tachypnea, or hypoxia. PE is otherwise unremarkable. Patient is nontoxic-appearing and is tolerating p.o. without difficulty. Incision and drainage performed successfully without any complications and packing was placed. Wound culture was obtained. Patient tolerated procedure well. No further labs or imaging warranted at this time. Wound instructions reviewed. Low suspicion for any sepsis, meningitis, or other systemic emergent condition at this time. Patient to monitor symptoms and seek medical attention with acute changes. Recheck with your PCM in 2-3 days. Return to the ED with any other worsening/concerning symptoms otherwise as reviewed. Patient is in agreement. - Vital Signs Vital signs: Temp Pulse Resp BP Pulse Ox 97.6 F 69 16 119/71 98 12/21/18 13:36 12/21/18 13:36 12/21/18 13:36 12/21/18 13:36 12/21/18 13:36 Procedures - Incision and Drainage Left Buttock Time completed: 17:40 Type: Simple Anesthetic type: 1% Lidocaine mL's of anesthetic: 8 Blade size: 11 I&D procedure: Iodoform packing placed, Sterile dressing applied, Other - chlorhexadine/saline Incision Method: Incision made by scalpel Amount/type of drainage: moderate purulent Discharge - Discharge Clinical Impression: Abscess Condition: Stable Disposition: HOME, SELF-CARE Instructions: Abscess ([facility]), Cephalexin ([facility]), Post Incision and Drainage, Trimethoprim-Sulfa ([facility]) Additional Instructions: Do not shower or bathe for 24 hours. After 24 hours you may shower but no submersion of the wound under water. Keep the original dressing on the wound for 24 hours unless the drainage soaks through. Change the dressing daily thereafter and use a small amount of triple antibiotic ointment over the open wound. See your PCM in 2-3 days for recheck and continue direction for wound packing. Monitor for any signs of worsening pain or redness, streaks, and/or fever. Return to the ED if noticing any of the above symptoms or as needed. Take medications as directed. Prescriptions: Cephalexin Monohydrate [Keflex 500 mg Capsule] 500 mg PO TID #21 capsule Sulfamethoxazole/Trimethoprim [Bactrim Ds Tablet] 1 each PO BID #20 tablet [facility] [NO LOCAL MD] - Follow up as needed KADEEM MEJIAS MD [WENCESLAO FRANCOIS] - Follow up as needed
[2018-12-21 18:07] VITALS: BP 113/72
--- NOTE | 2018-12-21 18:15 | ER Document Report ---
Entered by MICHAEL AMBROSIO SCRIBE 12/21/18 [id number] Acting as scribe for:RUTHANN MORENO DO ED Medical Screen (RME) - General Chief Complaint: Abscess Stated Complaint: WOUND CHECK Time Seen by Provider: 12/21/18 14:09 Primary Care Provider: TATE GUTIERREZ [NO LOCAL MD] - Follow up as needed KADEEM MEJIAS MD [WENCESLAO FRANCOIS] - Follow up as needed Notes: 38-year-old male who presents to the emergency department today for an abscess recheck. Patient states when the area was incised there was "no pocket" of pus. Patient states he has not noticed any drainage from this area. Patient states there has been increasing swelling and pain for the last few weeks. Patient denies any fevers. He was given antibiotics previously and he finished taking them. States that he now feels worse than when he was previously in the emergency department. I have greeted and performed a rapid initial assessment of this patient. A comprehensive ED assessment and evaluation of the patient, analysis of test results, and completion of the medical decision making process will be conducted by additional ED providers. Review of systems: Constitutional: Denies fevers EENT: No symptoms reported Cardiovascular: No symptoms reported Respiratory: No symptoms reported Gastrointestinal: No symptoms reported Genitourinary: No symptoms reported Musculoskeletal: No symptoms reported Skin: Abscess to left buttock Hematologic/Lymphatic: No symptoms reported Neurological/Psychological: No symptoms reported Yes All other systems reviewed and negative PHYSICAL EXAM GENERAL: Alert, interacts well. No acute distress. HEAD: Normocephalic, atraumatic. EYES: Pupils equal, round, and reactive to light. Extraocular movements intact. ENT: Oral mucosa moist, tongue midline. NECK: Full range of motion. Supple. Trachea midline. LUNGS: No respiratory distress. EXTREMITIES: Moves all 4 extremities spontaneously. NEUROLOGICAL: Alert and oriented x3. Normal speech. PSYCH: Normal affect, normal mood. SKIN: Left mid buttock has an area of induration, swelling, erythema, and fluctuance measuring 8 cm in diameter. No active drainage. TRAVEL OUTSIDE OF THE [place] IN LAST 30 DAYS: No - Related Data Allergies/Adverse Reactions: No Known Allergies Allergy (Verified 12/21/18 13:31) Past Medical History Renal/ Medical History: Denies: Hx Peritoneal Dialysis - Immunizations Immunizations up to date: Yes Hx Diphtheria, Pertussis, Tetanus Vaccination: Yes History of Influenza Vaccine for 08/2017 - 01/2018 Season: No Physical Exam - Vital signs Vitals: Temp Pulse Resp BP Pulse Ox 97.6 F 69 16 119/71 98 12/21/18 13:36 12/21/18 13:36 12/21/18 13:36 12/21/18 13:36 12/21/18 13:36 Course - Vital Signs Vital signs: Temp Pulse Resp BP Pulse Ox 97.8 F 94 18 113/72 99 12/21/18 18:04 12/21/18 18:04 12/21/18 18:04 12/21/18 18:04 12/21/18 18:04 Doctor's Discharge - Discharge Clinical Impression: Abscess Condition: Stable Disposition: HOME, SELF-CARE Instructions: Abscess ([facility]), Cephalexin ([facility]), Post Incision and Drainage, Trimethoprim-Sulfa ([facility]) Additional Instructions: Do not shower or bathe for 24 hours. After 24 hours you may shower but no submersion of the wound under water. Keep the original dressing on the wound for 24 hours unless the drainage soaks through. Change the dressing daily thereafter and use a small amount of triple antibiotic ointment over the open wound. See your PCM in 2-3 days for recheck and continue direction for wound packing. Monitor for any signs of worsening pain or redness, streaks, and/or fever. Return to the ED if noticing any of the above symptoms or as needed. Take medications as directed. Prescriptions: Cephalexin Monohydrate [Keflex 500 mg Capsule] 500 mg PO TID #21 capsule Sulfamethoxazole/Trimethoprim [Bactrim Ds Tablet] 1 each PO BID #20 tablet Referrals: [facility] [NO LOCAL MD] - Follow up as needed KADEEM MEJIAS MD [WENCESLAO FRANCOIS] - Follow up as needed I personally performed the services described in the documentation, reviewed and edited the documentation which was dictated to the scribe in my presence, and it accurately records my words and actions.
== END 2018-12-21 18:07 | disposition home or self-care (01) ==
LOC: ER 13:29
DX: L02.31 Cutaneous abscess of buttock (principal)
CPT/HCPCS: 99283; 87070; 87205; 10060; A6266; J3490

== ENCOUNTER 2018-12-25 06:55 | Emergency (ER) | payer SELFPAY ==
[2018-12-25] MEDS ORDERED: HYDROCODONE/ACETAMINOPHEN 10-325 MG TABLET PO ONE (07:55)
--- NOTE | 2018-12-25 09:52 | ER Document Report ---
ED General - General Chief Complaint: Wound Recheck Stated Complaint: WOUND CHANGE Time Seen by Provider: 12/25/18 07:27 Notes: Patient is a 38-year-old male presents to the emergency department for a wound recheck. Patient initially presented to the emergency department on 12/21/2018 and had an I&D performed with packing placed. Patient was instructed to follow- up with his primary care provider. Patient does not have a primary care provi oziel so he returns to the emergency department for a wound recheck. Patient states he is taking antibiotics as prescribed and is denying a fever. States overall he feels as though the swelling and pain has decreased in his left buttocks. Patient denies any history of IV drug use or MRSA infections. Past medical history: None Medications: None Allergies: None TRAVEL OUTSIDE OF THE [place] IN LAST 30 DAYS: No - Related Data Allergies/Adverse Reactions: No Known Allergies Allergy (Verified 12/21/18 13:31) Past Medical History - General Information source: Patient - Social History Smoking Status: Never Smoker Family History: Reviewed & Not Pertinent Patient has suicidal ideation: No Patient has homicidal ideation: No Renal/ Medical History: Denies: Hx Peritoneal Dialysis - Immunizations Immunizations up to date: Yes Hx Diphtheria, Pertussis, Tetanus Vaccination: Yes Review of Systems - Review of Systems Constitutional: See HPI EENT: No symptoms reported Cardiovascular: No symptoms reported Respiratory: No symptoms reported Gastrointestinal: No symptoms reported Genitourinary: No symptoms reported Male Genitourinary: No symptoms reported Musculoskeletal: No symptoms reported Skin: See HPI Hematologic/Lymphatic: No symptoms reported Neurological/Psychological: No symptoms reported Physical Exam - Vital signs Vitals: Temp Pulse Resp BP Pulse Ox 97.4 F 86 16 116/74 97 12/25/18 06:55 12/25/18 06:55 12/25/18 06:55 12/25/18 06:55 12/25/18 06:55 - Notes Notes: GENERAL: Alert, interacts well. No acute distress. HEAD: Normocephalic, atraumatic. EYES: Pupils equal, round, and reactive to light. Extraocular movements intact. ENT: Oral mucosa moist, tongue midline. NECK: Full range of motion. Supple. Trachea midline. LUNGS: Clear to auscultation bilaterally, no wheezes, rales, or rhonchi. No respiratory distress. HEART: Regular rate and rhythm. No murmur ABDOMEN: Soft, non-tender. Non-distended. Bowel sounds present in all 4 quadrants. EXTREMITIES: Moves all 4 extremities spontaneously. No edema, normal radial and dorsalis pedis pulses bilaterally. No cyanosis. BACK: no cervical, thoracic, lumbar midline tenderness. No saddle anesthesia, normal distal neurovascular exam. NEUROLOGICAL: Alert and oriented x3. Normal speech. cranial nerves II through XII grossly intact PSYCH: Normal affect, normal mood. SKIN: Warm, dry, normal turgor. a 1 cm x 1 cm area of open skin with a 2 cm x 2 cm area of erythema noted surrounding that to right buttocks. There appears to be no obvious discharge from the wound, good granulation tissue forming. Wound is nonfluctuant, nonindurated at this time. Course - Re-evaluation Re-evalutation: 12/25/18 09:53 In reviewing past providers note the abscess appeared to be 6 cm x 6 cm. Today the area of erythema is only 2 cm x 2 cm with good granulation tissue noted. Patient has no fluctuance or induration noted, no discharge from the opening in the center of the wound. Packing was removed, discussed continued use of antibiotics and return precautions. Patient voices understanding, stable for discharge. - Vital Signs Vital signs: Temp Pulse Resp BP Pulse Ox 97.4 F 86 16 116/74 97 12/25/18 06:55 12/25/18 06:55 12/25/18 06:55 12/25/18 06:55 12/25/18 06:55 Discharge - Discharge Clinical Impression: Encounter for wound re-check Condition: Stable Disposition: HOME, SELF-CARE Instructions: Cellulitis ([facility]), Abscess ([facility]) Additional Instructions: As we discussed your wound today appears to be healing well. Please continue to take antibiotics as prescribed.Please follow-up with your primary care provider in the next 48-72 hours. Please return to the emergency room for any other concerning symptoms. Forms: Return to Work
[2018-12-25 10:32] VITALS: BP 100/64
== END 2018-12-25 10:35 | disposition home or self-care (01) ==
LOC: ER 06:55
DX: L02.31 Cutaneous abscess of buttock (principal)
CPT/HCPCS: 99282

== ENCOUNTER 2019-07-15 15:52 | Emergency (ER) | payer OTHER ==
--- NOTE | 2019-07-15 17:36 | ER Document Report ---
HPI - HPI Patient complains to provider of: knot on chin Time Seen by Provider: 07/15/19 17:25 Pain Level: 1 Context: Healthy 39-year-old male presents to the emergency department with chief complaint of a small abscess on his left mandible that developed over the last 3 to 4 days. Patient states that it is painless, does not have fevers or chills, and does not have any purulent discharge from it. Past Medical History - Social History Smoking Status: Unknown if Ever Smoked Family History: Reviewed & Not Pertinent Renal/ Medical History: Denies: Hx Peritoneal Dialysis - Immunizations Immunizations up to date: Yes Hx Diphtheria, Pertussis, Tetanus Vaccination: Yes Vertical Provider Document - CONSTITUTIONAL Notes: PHYSICAL EXAMINATION: Reviewed vital signs and charting by RN GENERAL: Alert, interacts well. No acute distress. HEAD: Normocephalic, atraumatic. EYES: Pupils equal and round. Extraocular movements intact. ENT: Oral mucosa moist, tongue midline. NECK: Full range of motion. Trachea midline. EXTREMITIES: Moves all 4 extremities spontaneously. No edema, No cyanosis. PSYCH: Normal affect, normal mood. SKIN: Warm, dry, normal turgor. Small mobile round subcutaneous abscess versus cyst on the left ramus of the jaw - INFECTION CONTROL TRAVEL OUTSIDE OF THE [place] IN LAST 30 DAYS: No Course - Re-evaluation Re-evalutation: 07/15/19 17:36 Overall well-appearing. I initially attempted to aspirate with a needle and a syringe but was unsuccessful so plan is to move to an incision and drainage. Plan is to anesthetized with 1% lidocaine and place him on a short course of Keflex. - Vital Signs Vital signs: Temp Pulse Resp BP Pulse Ox 97.9 F 106 H 18 115/77 97 07/15/19 15:59 07/15/19 15:59 07/15/19 15:59 07/15/19 15:59 07/15/19 15:59 Discharge - Discharge Clinical Impression: Abscess Condition: Good Disposition: HOME, SELF-CARE Instructions: Cephalexin ([facility]) Additional Instructions: You are seen in the emergency department for a small cyst on your jaw. We drained it and have given you a short course of antibiotics. Please do hot compresses on it several times a day. If you develop fever, you get reddening around the site, you get a stiff jaw where you are unable to open your mouth, or you have any other concerning symptoms please immediately return to the emergency department.
[2019-07-15 18:12] VITALS: BP 112/77
== END 2019-07-15 18:12 | disposition home or self-care (01) ==
LOC: ER 15:52
DX: L02.01 Cutaneous abscess of face (principal)
CPT/HCPCS: 99282

== ENCOUNTER 2020-02-06 15:17 | Emergency (ER) | payer SELFPAY ==
--- NOTE | 2020-02-06 16:38 | ER Document Report ---
HPI - HPI Time Seen by Provider: 02/06/20 16:26 Onset: Other - This is a 40-year-old male presented to the emergency room today stating it had a rash to the medial aspect of bilateral index fingers which is been ongoing for approximately a year. Quality of pain: No pain - Thank you Severity: None Pain Level: 3 Associated Symptoms: None. denies: Fever, Nausea, Rhinnorhea, Sinus pain/drainage, Shortness of breath Exacerbated by: Denies - CONSTITUTIONAL Constitutional: DENIES: Fever, Chills Past Medical History - General Information source: Patient - Social History Smoking Status: Current Every Day Smoker Family History: Reviewed & Not Pertinent Patient has suicidal ideation: No Patient has homicidal ideation: No Renal/ Medical History: Denies: Hx Peritoneal Dialysis Psychiatric Medical History: Reports: Hx Depression - Immunizations Immunizations up to date: Yes Hx Diphtheria, Pertussis, Tetanus Vaccination: Yes Vertical Provider Document - CONSTITUTIONAL Agree With Documented VS: Yes Exam Limitations: No Limitations - INFECTION CONTROL TRAVEL OUTSIDE OF THE [place] IN LAST 30 DAYS: No - HEENT HEENT: Atraumatic, Conjuctival Injection, Normocephalic, PERRLA - NECK Neck: Normal Inspection - RESPIRATORY Respiratory: Wheezing - CARDIOVASCULAR Cardiovascular: Regular Rate Pulses: Normal: Brachial, Radial, Carotid - GI/ABDOMEN Gastrointestinal: Abdomen Soft, Abdomen Non-Tender - REPRODUCTIVE Male Genitalia: Normal Inspection - BACK Back: Normal Inspection - DERM Integumentary: Warm, Dry, Rash Notes: Excoriated dry rash medially to bilateral index fingers. Course - Vital Signs Vital signs: Temp Pulse Resp BP Pulse Ox 97.3 F 80 16 116/69 97 02/06/20 16:03 02/06/20 16:03 02/06/20 16:03 02/06/20 16:03 02/06/20 16:03 Discharge - Discharge Clinical Impression: Contact dermatitis Qualifiers: Contact dermatitis type: unspecified Contact dermatitis trigger: unspecified trigger Qualified Code(s): L25.9 - Unspecified contact dermatitis, unspecified cause Condition: Good Disposition: HOME, SELF-CARE Instructions: Acute Urticaria ([facility]) Additional Instructions: Do not use alcohol or peroxide on affected areas. Prescriptions: Clotrimazole/Betamethasone Dip [Lotrisone Cream 15 gm] 15 applic EXT BID #1 tube
[2020-02-06] MEDS ORDERED: DEXAMETHASONE SOD PHOS INJ 10 MG/1 ML VIAL IM ONE (16:53)
[2020-02-06 17:07] VITALS: BP 134/64
== END 2020-02-06 17:06 | disposition home or self-care (01) ==
LOC: ER 15:17
DX: L25.9 Unspecified contact dermatitis, unspecified cause (principal); F17.200 Nicotine dependence, unspecified, uncomplicated
CPT/HCPCS: 99282; 96372; J1100

== ENCOUNTER 2020-02-12 10:23 | Emergency (ER) | payer SELFPAY ==
[2020-02-12 10:28] VITALS: BP 133/76
--- NOTE | 2020-02-12 10:39 | ER Document Report ---
HPI - HPI Time Seen by Provider: 02/12/20 10:32 Notes: Otherwise healthy 40-year-old male presenting to the emergency department possible abscess to his left cheek. He reports this is been there for approximately 2 days. He denies any drainage from the area. Denies fevers. Denies history of MRSA. Past Medical History - General Information source: Patient - Social History Smoking Status: Never Smoker Frequency of alcohol use: None Drug Abuse: None Family History: Reviewed & Not Pertinent Renal/ Medical History: Denies: Hx Peritoneal Dialysis Psychiatric Medical History: Reports: Hx Depression - Immunizations Immunizations up to date: Yes Hx Diphtheria, Pertussis, Tetanus Vaccination: Yes Vertical Provider Document - CONSTITUTIONAL Notes: PHYSICAL EXAMINATION: GENERAL: Well-appearing, well-nourished and in no acute distress. HEAD: Atraumatic, normocephalic. EYES: Pupils equal round extraocular movements intact, conjunctiva are normal. ENT: Nares patent NECK: Normal range of motion LUNGS: No respiratory distress Musculoskeletal: Normal range of motion NEUROLOGICAL: Normal speech, normal gait. PSYCH: Normal mood, normal affect. SKIN: Area of induration with fluctuance noted to left cheek measuring approximately 1 cm in diameter. - INFECTION CONTROL TRAVEL OUTSIDE OF THE [place] IN LAST 30 DAYS: No Course - Re-evaluation Re-evalutation: Abscess was incised and drained. Patient tolerated well. Patient will be started on antibiotics. ED return precautions discussed. - Vital Signs Vital signs: Temp Pulse Resp BP Pulse Ox 97.5 F 70 18 133/76 H 99 02/12/20 10:26 02/12/20 10:26 02/12/20 10:26 02/12/20 10:26 02/12/20 10:26 Procedures - Incision and Drainage Left facial Type: Simple Anesthetic type: 1% Lidocaine Blade size: 11, Other I&D procedure: Chlorprep applied Incision Method: Incision made by scalpel Discharge - Discharge Clinical Impression: Facial abscess Condition: Stable Disposition: HOME, SELF-CARE Instructions: Abscess ([facility]), Trimethoprim-Sulfa ([facility]) Additional Instructions: Please apply a hot compress to the area 4 times daily. Take antibiotics as prescribed. Return to the emergency department with any new or worsening symptoms. Prescriptions: Sulfamethoxazole/Trimethoprim [Bactrim Ds Tablet] 1 tab PO BID #14 tablet
== END 2020-02-12 11:40 | disposition home or self-care (01) ==
LOC: ER 10:23
DX: L02.01 Cutaneous abscess of face (principal)
CPT/HCPCS: 99283

== ENCOUNTER 2020-03-30 16:51 | Emergency (ER) | payer SELFPAY ==
[2020-03-30 16:58] VITALS: BP 139/80
--- NOTE | 2020-03-30 17:58 | ER Document Report ---
ED Medical Screen (RME) - General Chief Complaint: Abscess Stated Complaint: POSSIBLE ABSCESS Time Seen by Provider: 03/30/20 17:57 Mode of Arrival: Ambulatory Information source: Patient Notes: 40-year-old male presented to ED for complaint of an abscess to the right buttocks. He states it was I&D at about 5 months ago and it started draining a couple days ago. There is a very firm area to the right buttocks going over to the cleft. Patient states it is not extremely painful right now does not want any Tylenol Motrin at this time. I have greeted and performed a rapid initial assessment of this patient. A comprehensive ED assessment and evaluation of the patient, analysis of test results and completion of medical decision making process will be conducted by an additional ED providers. TRAVEL OUTSIDE OF THE [place] IN LAST 30 DAYS: No - Related Data Allergies/Adverse Reactions: No Known Allergies Allergy (Verified 03/30/20 17:48) Home Medications: Trentellix. Invega Past Medical History - Social History Chew tobacco use (# tins/day): No Frequency of alcohol use: None Drug Abuse: None Renal/ Medical History: Denies: Hx Peritoneal Dialysis Psychiatric Medical History: Reports: Hx Depression - Immunizations Immunizations up to date: Yes Hx Diphtheria, Pertussis, Tetanus Vaccination: Yes Physical Exam - Vital signs Vitals: Temp Pulse Resp BP Pulse Ox 98.3 F 61 18 139/80 H 99 03/30/20 16:55 03/30/20 16:55 03/30/20 16:55 03/30/20 16:55 03/30/20 16:55 Course - Vital Signs Vital signs: Temp Pulse Resp BP Pulse Ox 98.3 F 61 18 139/80 H 99 03/30/20 17:48 03/30/20 16:55 03/30/20 16:55 03/30/20 16:55 03/30/20 16:55
[2020-03-30] MEDS ORDERED: LIDOCAINE 1% INJ-PF (10 MG/ML) 30 ML SDV INJ ONE (18:21)
--- NOTE | 2020-03-30 18:21 | ER Document Report ---
Entered by MICHAEL AMBROSIO SCRIBE 03/30/20 1808 Acting as scribe for:AMY LAUGHLIN MD ED General - General Chief Complaint: Abscess Stated Complaint: POSSIBLE ABSCESS Time Seen by Provider: 03/30/20 17:57 Mode of Arrival: Ambulatory Information source: Patient Notes: This 40 year old male patient presents to the emergency department today with complaints of an abscess to his left buttock. He states he is noticed some blood draining recently. Patient has had an abscess in this area drained in October 2018. In the past few months he has had abscesses on his jaw drained. There is no history of fever. TRAVEL OUTSIDE OF THE [place] IN LAST 30 DAYS: No - Related Data Allergies/Adverse Reactions: No Known Allergies Allergy (Verified 03/30/20 17:48) Home Medications: Trentellix. Invega Past Medical History - General Information source: Patient - Social History Smoking Status: Current Every Day Smoker Cigarette use (# per day): Yes - 1/2 PPD Chew tobacco use (# tins/day): No Smoking Education Provided: No Frequency of alcohol use: None Drug Abuse: None Occupation: Unemployed Lives with: Family Family History: Reviewed & Not Pertinent Patient has homicidal ideation: No Psychiatric Medical History: Reports: Hx Depression Past Surgical History: Reports: Other - 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 - Immunizations Immunizations up to date: Yes Hx Diphtheria, Pertussis, Tetanus Vaccination: Yes Review of Systems - Review of Systems Constitutional: No symptoms reported EENT: No symptoms reported Cardiovascular: No symptoms reported Respiratory: No symptoms reported Gastrointestinal: No symptoms reported Genitourinary: No symptoms reported Male Genitourinary: No symptoms reported Musculoskeletal: No symptoms reported Skin: See HPI, Lesions Hematologic/Lymphatic: No symptoms reported Neurological/Psychological: No symptoms reported -: Yes All other systems reviewed and negative Physical Exam - Vital signs Vitals: Temp Pulse Resp BP Pulse Ox 98.3 F 61 18 139/80 H 99 03/30/20 16:55 03/30/20 16:55 03/30/20 16:55 03/30/20 16:55 03/30/20 16:55 - Notes Notes: PHYSICAL EXAMINATION: GENERAL: Well-appearing, well-nourished and in no acute distress. HEAD: Atraumatic, normocephalic. EYES: Pupils equal round and reactive to light, extraocular movements intact, sclera anicteric, conjunctiva are normal. ENT: nares patent, oropharynx clear without exudates. Moist mucous membranes. NECK: Normal range of motion, supple without lymphadenopathy LUNGS: Breath sounds clear to auscultation bilaterally and equal. No wheezes rales or rhonchi. HEART: Regular rate and rhythm without murmurs ABDOMEN: Soft, nontender, normoactive bowel sounds. No guarding, no rebound. No masses appreciated. BUTTOCKS: The left upper buttock near the medial cleft has a 2 to 3 cm rounded firm, slightly tender, slightly fluctuant swelling. Just inferior lateral and superior lateral to this collection are small abscess tracts that are each draining pus. It is unclear if those 2 abscess tracts communicate with each other or with the larger swollen region. EXTREMITIES: Normal range of motion, no pitting or edema. No cyanosis. NEUROLOGICAL: Cranial nerves grossly intact. Normal speech, normal gait. Normal sensory, motor, and reflex exams. PSYCH: Normal mood, normal affect. SKIN: Warm, Dry, normal turgor, no rashes or lesions noted. Course - Re-evaluation Re-evalutation: 03/30/20 19:16 PROCEDURE: The skin of the left buttock was prepped with Shur-Clens. The area around both draining sinus tracts was anesthetized with 1% lidocaine. The palpable mass at the left midline near the top of the buttock cleft was similarly anesthetized with 1% lidocaine. A total of 10 mL's of 1% lidocaine was used. A mosquito clamp was introduced through each of the draining sinus tracts and was pushed unimpeded almost to the mid line of the buttock underneath the firm swollen area. The mosquito clamp was easily opened up and moved about showing a fairly large subcutaneous defect defect. A #11 blade was used to oneil through the skin and the thickened scarred type tissue to reach the defect where the mosquito clamp was located. The 3 wounds all communicated and were copiously irrigated with at least 40 mL's of normal saline, such that which ever hold the saline was introduced, it would come out the other 2 holes. 1/4 inch gauze was placed from the new incision and coming out each of the previously identified and explored sinus tracts. - Vital Signs Vital signs: Temp Pulse Resp BP Pulse Ox 98.3 F 61 18 139/80 H 99 03/30/20 17:48 03/30/20 16:55 03/30/20 16:55 03/30/20 16:55 03/30/20 16:55 Discharge - Discharge Clinical Impression: Left buttock abscess Condition: Stable Disposition: HOME, SELF-CARE Additional Instructions: Abscess: You have an abscess (boil). This a pus-forming infection, usually due to staph. Some boils may be left to drain on their own, but most require lancing. From the time the tender lump first appears, it may be three or four days before the abscess is ready to nithin. Local heat and rest help at this stage of treatment. An antibiotic may prevent spread of the infection. Once the abscess is opened, packing may be placed into it. This is done so pus is not sealed inside by premature closure of the cavity. The packing will be removed at your follow-up visit or you may be advised to remove it yourself at home. Sometimes this packing must be replaced a few times during healing. The wound will heal with surprisingly little scar. Depending on the size and location of an abscess, healing can take one to four weeks. You may shower and wash the area around the incision site two or three times a day. Antibiotics may be prescribed, but are usually not necessary after an abscess has been drained. If you develop fever, chilling, worsening pain, or increasing swelling in the area, call the doctor or return immediately. Keep a pad type dressing over the abscess area. Soak in warm water at least twice daily. Take medications as prescribed. Follow-up with [facility] this week--call tomorrow to schedule an appointment. RETURN TO THE EMERGENCY ROOM IF ANY NEW OR WORSENING SYMPTOMS. Prescriptions: Cephalexin Monohydrate [Keflex 500 mg Capsule] 500 mg PO QID #20 capsule Referrals: [facility] [Provider Group] - Follow up in 3-5 days I personally performed the services described in the documentation, reviewed and edited the documentation which was dictated to the scribe in my presence, and it accurately records my words and actions.
[2020-03-30] MEDS ORDERED: HYDROCODONE/ACETAMINOPHEN 5-325 MG (6 TAB/ER DISP) PO PRN (19:23)
[2020-03-30] MEDS ORDERED: CEPHALEXIN 500 MG CAPSULE PO ONE (19:23)
== END 2020-03-30 20:25 | disposition home or self-care (01) ==
LOC: ER 16:51
DX: L02.31 Cutaneous abscess of buttock (principal); F17.210 Nicotine dependence, cigarettes, uncomplicated
CPT/HCPCS: 99283; 87070; 87205; 10060; J3490

== ENCOUNTER 2020-05-19 10:36 | Emergency (ER) | payer SELFPAY ==
[2020-05-19 10:42] VITALS: BP 130/76
--- NOTE | 2020-05-19 11:05 | ER Document Report ---
HPI - HPI Patient complains to provider of: bump on chin/ neck Time Seen by Provider: 05/19/20 10:56 Pain Level: 1 Context: This 40-year-old male who has a fairly longstanding history of folliculitis from shaving. He has another bump underneath his chin/neck that he feels may or may not have been another folliculitis developing Associated Symptoms: None Exacerbated by: Denies - REPRODUCTIVE Reproductive: DENIES: : Past Medical History - General Information source: Patient - Social History Smoking Status: Never Smoker Frequency of alcohol use: Occasional Drug Abuse: None Family History: Reviewed & Not Pertinent Renal/ Medical History: Denies: Hx Peritoneal Dialysis Psychiatric Medical History: Reports: Hx Depression Past Surgical History: Reports: Other - 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 - Immunizations Immunizations up to date: Yes Hx Diphtheria, Pertussis, Tetanus Vaccination: Yes Vertical Provider Document - CONSTITUTIONAL Agree With Documented VS: Yes - INFECTION CONTROL TRAVEL OUTSIDE OF THE [place] IN LAST 30 DAYS: No - HEENT HEENT: Atraumatic, Conjuctival Injection, Normocephalic, PERRLA - NECK Neck: Normal Inspection - RESPIRATORY Respiratory: Breath Sounds Normal - CARDIOVASCULAR Cardiovascular: Regular Rate, Regular Rhythm - GI/ABDOMEN Gastrointestinal: Abdomen Soft - MUSCULOSKELETAL/EXTREMETIES Musculoskeletal/Extremeties: MAEW - NEURO Level of Consciousness: Awake, Alert - DERM Integumentary: Warm, Dry, No Rash Notes: Cellulitis noted to right side of chin/neck fold. No difficulty swallowing no difficulty breathing no trismus no fever no oral floor induration. Course - Vital Signs Vital signs: Temp Pulse Resp BP Pulse Ox 98.7 F 73 20 130/76 H 98 05/19/20 10:41 05/19/20 10:41 05/19/20 10:41 05/19/20 10:41 05/19/20 10:41 Discharge - Discharge Clinical Impression: Folliculitis Condition: Good Disposition: HOME, SELF-CARE Instructions: Folliculitis ([facility]), Trimethoprim-Sulfa ([facility]) Additional Instructions: Warm compresses 4-5 times a day. Follow-up with PMD in 2 to 3 days. Return to the emergency room for any change or worsening condition. Prescriptions: Sulfamethoxazole/Trimethoprim [Bactrim 400-80 mg Tablet] 1 each PO Q12 #20 tablet Sulfamethoxazole/Trimethoprim [Bactrim 400-80 mg Tablet] 1 each PO Q12 #20 tablet
== END 2020-05-19 11:07 | disposition home or self-care (01) ==
LOC: ER 10:36
DX: L73.9 Follicular disorder, unspecified (principal); L03.211 Cellulitis of face
CPT/HCPCS: 99282

== ENCOUNTER 2020-05-26 20:34 | Emergency (ER) | payer SELFPAY ==
[2020-05-26] MEDS ORDERED: DIPH/PERTUSS(ACELL)/TETANUS VAC/PF 0.5 ML SYR (>=10YO) IM ONE (21:37)
[2020-05-26] MEDS ORDERED: HYDROCODONE/ACETAMINOPHEN 5-325 MG TABLET PO ONE (21:37)
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
[2020-05-26] MEDS ORDERED: HYDROCODONE/ACETAMINOPHEN 5-325 MG (6 TAB/ER DISP) PO PRN (23:11)
[2020-05-26 23:34] VITALS: BP 116/64
== END 2020-05-26 23:32 | disposition home or self-care (01) ==
LOC: ER 20:34
DX: S52.122A Displaced fracture of head of left radius, initial encounter for closed fracture (principal); S50.811A Abrasion of right forearm, initial encounter; S80.211A Abrasion, right knee, initial encounter; V28.4XXA Motorcycle driver injured in noncollision transport accident in traffic accident, initial encounter; F17.210 Nicotine dependence, cigarettes, uncomplicated
CPT/HCPCS: 90715; 99283